=== PATIENT | male | born 1970 ===

== ENCOUNTER 2022-06-18 04:35 | Day surgery (SDC) | payer OTHER ==
[2022-06-17 09:27] VITALS: BMI 29.7
[2022-06-18] MEDS ORDERED: ONDANSETRON 4 MG/2 ML VIAL IVPUSH PRN (11:49)
[2022-06-18] MEDS ORDERED: LACTATED RINGERS SOLUTION 1,000 ML IV SCH (12:00)
[2022-06-18 12:22] VITALS: TEMP 98.2
[2022-06-18 12:31] VITALS: RESP 17
[2022-06-18 13:00] VITALS: BP 118/63; PULSE 67
== END 2022-06-18 13:22 | disposition home or self-care (01) ==
LOC: JASU-ENDO 04:35
PROVIDERS: ATTEND Internal Medicine Gastroenterology
PROC: 0DJD8ZZ Inspection of Lower Intestinal Tract, Via Natural or Artificial Opening Endoscopic (ICD-10-PCS; principal; 2022-06-18 11:00)
DX: Z12.11 Encounter for screening for malignant neoplasm of colon (principal); K63.89 Other specified diseases of intestine
CPT/HCPCS: 88305-TC; 88342-TC